=== PATIENT | female | born 1970 | race Caucasian/White ===

== ENCOUNTER 2019-04-08 12:54 | Outpatient (CLI) | payer OTHER ==
--- NOTE | 2019-04-08 13:46 | MRI ---
MRI LUMBAR SPINE WITHOUT CONTRAST: HISTORY: Spinal stenosis. Low back pain, radiating down the left leg and hip x6 months. COMPARISON: None. FINDINGS: Appropriate T1 marrow signal intensity of the lumbar vertebrae. Lumbar spine vertebral body height is maintained. No fracture Straightening of normal lumbar lordosis may be positional. No evidence of STIR signal hyperintensity to suggest ligamentous injury. Symmetric signal intensity of the paraspinal muscles. Appropriate signal intensity of the visualized solid organs. The conus medullaris terminates at the inferior aspect of L1. T12-L1: Adequate disc hydration. No significant central canal stenosis or significant neural foramina l narrowing. L1-L2: Desiccation with minimal loss of disc space height. No significant posterior disc abnormality. No significant central canal stenosis or significant neural foraminal narrowing. L2-L3: Adequate disc hydration. No significant central canal stenosis or significant neural foraminal narrowing. L3-L4: Adequate disc hydration. Generalized disc bulge minimally flattens the ventral thecal sac. No significant central canal stenosis or significant neural foraminal narrowing. L4-L5: Adequate disc hydration. No significant central canal stenosis or significant neural foraminal narrowing. L5-S1: Adequate disc hydration. Broad-based disc bulge with a small left subarticular component. Ther e is a left subarticular T2 and STIR hyperintensity compatible with annular fissure. There is also a small annular fissure along the right paracentral aspect of the disc. Left annular fissure is adjac ent to the traversing left S1 nerve root. No significant central canal stenosis or significant neural foraminal narrowing. IMPRESSION: 1. No significant canal stenosis or significant neural foraminal narrowing. 2. Annular fissure at L5-S1. Annular fissure is in the left subarticular zone and is adjacent to the traversing left S1 nerve root. No significant mass effect or obscuration of the traversing left S1 nerve root. Transcribed Date/Time: 04/08/2019 1:58 PM
== END 2019-04-08 12:55 | disposition home or self-care (01) ==
LOC: SCSMRI 12:54
PROVIDERS: ATTEND Orthopaedic Surgery
DX: M48.061 Spinal stenosis, lumbar region without neurogenic claudication (principal)
CPT/HCPCS: 72148